=== PATIENT | male | born 1995 | race Caucasian/White ===

== ENCOUNTER 2024-10-21 23:03 | Emergency (ER) | payer BC, SELFPAY ==
[2024-10-21 23:04] VITALS: BP 117/72; PULSE 90; RESP 20; TEMP 36.6; O2SAT 95; BMI 34.1
--- NOTE | 2024-10-22 00:03 | [facility].EDGENADL ---
Discharge Plan Disposition Patient Disposition: Home, Self-Care Condition: Good Prescriptions Prescriptions: New ondansetron HCl 4 mg tablet 4 mg PO Q8H PRN (Reason: nausea and vomiting) 5 Days Qty: 30 0RF Referrals Follow up/Referrals: Provider,Referral, MD [Primary Care Provider] - See instructions Activity Restrictions/Add. Instructions Additional Instructions/Restrictions: Please follow-up with urology as discussed. Please return to the ER if you develop any new or worsening symptoms or your symptoms persist, especially monitor for signs of infection. Please take Zofran as needed for nausea. Clinical Impressions Clinical Impression: Calculus of ureterovesical junction (UVJ) Print Language Print Language: Bulgarian Discharge ED Provider: Carlos Tilley General Adult HPI General Chief complaint: PAIN Stated complaint: vomiting, abd pain, poss kidney stones Time Seen by Provider: 10/22/24 00:03 History of Present Illness HPI narrative: 20-year-old male with distant history of kidney stones presents for continued flank pain in the setting of kidney stone. He reports that he was seen last week at [facility] and diagnosed with a kidney stone that was approximately 3 mm. He was discharged on Flomax and has been taking it as well as pain meds but tonight his symptoms acutely worsened prompting presentation. No fever, chills, dysuria. Related Data Previous Rx's ?Medication ?Instructions ?Recorded ondansetron HCl 4 mg tablet 4 mg PO Q8H PRN nausea and 10/22/24 vomiting 5 days #30 tabs Allergies Allergy/AdvReac Type Severity Reaction Status Date / Time No Known Allergies Allergy Verified 10/22/24 00:11 [facility] Disclaimer: The information contained in this section may have been updated after the patient was seen, as this information can be updated by other users. Social History Smoking Status: Never smoker alcohol intake: never current occupational status: employed Travel in the last 8 weeks: None ROS Obtained: Yes All systems reviewed & no additional complaints except as documented Physical Exam General General appearance: alert Comment: Uncomfortable appearing Head Head exam: atraumatic and normocephalic Eye Eye exam: Present normal appearance, PERRL and EOMI ENT ENT exam: Present normal oropharynx and normal external ear exam Neck Neck exam: Present normal inspection and full ROM Chest Chest inspection: Present normal inspection and symmetric chest wall rise; Absent tenderness Respiratory Respiratory exam: Present normal lung sounds bilaterally; Absent respiratory distress Cardiovascular Cardiovascular exam: Present regular rate and normal rhythm Abdominal Exam Abdominal exam: Present soft; Absent distention, tenderness or guarding Extremities Exam Extremities exam: Present normal inspection; Absent edema or joint swelling Back Exam Back exam: Present normal inspection and CVA tenderness (L) Neurological Exam Neurological exam: Present alert and oriented X3; Absent motor sensory deficit Psychiatric Psychiatric exam: Present normal affect and normal mood Skin Skin exam: Present warm, dry and normal color Lymphatic Lymphatic Findings: no adenopathy Medical Decision Making Medical Records Medical records reviewed: Yes I reviewed the patient's medical records. Screening: Per USPSTF and CDC recommendations, given the prevalence of disease in our region, it is our hospital?s policy to screen for HIV and viral Hepatitis for all patients aged 18 and over and those with ongoing risk factors. Humza Inquiry Pt receiving controlled substance: No Humza was queried for this patient: No Vital Signs: 10/21/24 23:04 10/22/24 03:32 Temperature 97.8 F 98.1 F Temperature Source Oral Pulse Rate 67 Pulse Rate [Right Brachial] 90 Respiratory Rate 20 16 Blood Pressure 156/113 H Blood Pressure [Right Arm] 117/72 Blood Pressure Mean [Right Arm] 87 Blood Pressure Source [Right Arm] Automatic Cuff Blood Pressure Position [Right Arm] Supine 02 Sat by Pulse Oximetry 95 Oxygen Delivery Method Room Air Lab Data Lab results reviewed: Yes I reviewed the patient's lab results. Lab Results 10/22/24 00:10: Urine Color Yellow, Urine Appearance Slightly cloudy, Urine pH 7.5, Ur Specific [place] 1.020, Urine Protein 1+ A, Urine Glucose (UA) Negative, Urine Ketones 1+, Urine Blood 1+ A, Urine Nitrate Negative, Urine Bilirubin Negative, Urine Urobilinogen 0.2, Ur Leukocyte Esterase Trace, Urine RBC 5-10, Urine WBC Occasional, Ur Squamous Epith Cells Occasional, Amorphous Sediment 2+, Urine Bacteria 1+ 10/22/24 00:23: WBC 12.4 H, RBC 4.62, Hgb 14.8, Hct 42.1, MCV 91.1, MCH 32.0 H, MCHC 35.2, RDW 11.7, Plt Count 197, MPV 10.0, Neut % (Auto) 78.8, Lymph % (Auto) 9.9 L, [place] % (Auto) 10.0 H, Eos % (Auto) 0.2, Baso % (Auto) 0.5, Neut # (Auto) 9.8 H, Lymph # (Auto) 1.2, [place] # (Auto) 1.2 H, Eos # (Auto) 0.0, Baso # (Auto) 0.1, Sodium 133 L, Potassium 3.7, Chloride 102, Carbon Dioxide 24, Anion Gap 10.7, BUN 18, Creatinine 0.90, Estimated Creat Clear 226, Estimated GFR 100, Est GFR ( Amer) 122, Glucose 101 H, Calcium 9.5, Total Bilirubin 1.6 H, AST 35, ALT 36, Alkaline Phosphatase 63, Total Protein 7.1, Albumin 4.5, Globulin 2.6, Albumin/Globulin Ratio 1.7 10/22/24 01:52: Urine Color Yellow, Urine Appearance Clear, Urine pH 7.0, Ur Specific [place] <= 1.005, Urine Protein Negative, Urine Glucose (UA) Negative, Urine Ketones Negative, Urine Blood 1+ A, Urine Nitrate Negative, Urine Bilirubin Negative, Urine Urobilinogen 0.2, Ur Leukocyte Esterase Negative, Urine RBC 5-10, Urine WBC 3-5, Ur Squamous Epith Cells 3-5, Urine Bacteria Trace 10/22/24 00:23 10/22/24 00:23 Orders (Tests/Meds): ED MEDICATIONS Discontinued Medications Generic Name Dose Route Start Last Admin Trade Name Ohq PRN Reason Stop Dose Admin Acetaminophen 1,000 mg 10/22/24 00:06 10/22/24 00:20 Acetaminophen 500mg Tab PO 10/22/24 00:07 1,000 mg ONCE ONE Administration Iopamidol 75 ml 10/22/24 01:22 10/22/24 01:23 Iopamidol-370 (76%);100ml Bottle IV 10/22/24 01:23 75 ml ONCE ONE Administration Ketorolac Tromethamine 30 mg 10/22/24 00:06 10/22/24 00:22 Ketorolac 30mg/Ml Vial IV 10/22/24 00:07 30 mg ONCE ONE Administration Morphine Sulfate 4 mg 10/22/24 00:06 10/22/24 00:22 Morphine 4mg/Ml Syringe IV 10/22/24 00:07 4 mg ONCE ONE Administration Ondansetron HCl 4 mg 10/22/24 00:06 10/22/24 00:21 Ondansetron 4mg/2ml Vial IV 10/22/24 00:07 4 mg ONCE ONE Administration Oxycodone HCl 5 mg 10/22/24 03:30 10/22/24 03:38 Oxycodone 5mg Immediate Release Tablet PO 10/22/24 03:31 5 mg ONCE ONE Administration Sodium Chloride 10 ml 10/22/24 01:22 10/22/24 01:23 Sodium Chloride 0.9% 10ml Syr (Rad Only) IV 10/22/24 01:23 10 ml ONCE ONE Administration ORDERS Category Date Time Status CT abdomen pelvis w con Stat Cat Scan 10/22/24 00:08 Completed CBC w/Auto Diff [Complete Blood Count Auto Diff] Stat Lab 10/22/24 00:23 Completed CMP [Comprehensive Metabolic Panel] Stat Lab 10/22/24 00:23 Completed UA [Urinalysis and Microscopic] Stat Lab 10/22/24 00:10 Completed UA [Urinalysis and Microscopic] Stat Lab 10/22/24 01:52 Completed Medical Decision Narrative: 28-year-old male with distant history of kidney stones, diagnosed with a 3 mm kidney stone at [facility] last week presents for continued/worsened left flank pain.. History was obtained via interactive discussion with patient, family. On arrival, patient is [afebrile, hemodynamically stable, satting appropriately, alert, oriented x4, GCS 15], moving all extremities spontaneously. Full physical exam performed and significant for left CVA tenderness Differential includes but is not limited to kidney stone, pyelonephritis, UTI, ANGUS, perinephric abscess. Patient was given Tylenol Toradol morphine Zofran oxycodone for symptomatic management and correction of underlying abnormalities. Workup initiated including CBC CMP UA CT abdomen pelvis with IV contrast. On re-evaluation, patient [remains afebrile, HD stable.] He reports marked symptomatic improvement, feeling much better. Laboratory workup independently interpreted by me and significant for minimal leukocytosis, mildly elevated bilirubin, normal renal function urine with 5-10 RBCs, 3-5 WBCs, trace bacteria, 3-5 squamous cells.. Imaging independently interpreted by me and significant for 3 to 4 mm UVJ stone with some associated thickening of the bladder wall around the entrance of the ureter, appears inflammatory in nature according radiology but cannot rule out a neoplastic process.. See radiology read for full review of final results. Given patient history, exam and workup, patient's presentation most likely represents continued pain secondary to kidney stone. On reassessment patient's and nausea are nearly resolved. Given how distal the stone is, it is possible that it has passed between now and the CT scan. Extensive discussion was had with patient regarding his presentation. Given he has had no fevers chills or systemic symptoms, no dysuria, it seems unlikely his urinalysis is consistent with UTI. However, given the presence of whites and bacteria, I cannot categorically rule out a UTI with concomitant obstructing stone. Given this, I offered patient transfer to another facility for urology assessment but after interactive discussion patient declined. Regarding the bladder wall inflammation, I discussed with him that it was extremely important that he follow-up for reassessment. Recommended he return immediately if he develops any fever chills or systemic symptoms or if his pain returns or worsens as this could be a sign of infection. Procedures Risk/Benefits of Procedure(s) Were Explained: Yes Critical Care Critical Care Time Critical Care Time: No
--- NOTE | 2024-10-22 00:08 | CT_ITS ---
PROCEDURE INFORMATION: Exam: CT Abdomen And Pelvis With Contrast Exam date and time: 10/22/2024 12:35 AM Age: 28 years old Clinical indication: Abdominal pain; Acute; Additional info: Worsening abd pain, one week kidney stone TECHNIQUE: Imaging protocol: Computed tomography of the abdomen and pelvis with contrast. Radiation optimization: All CT scans at this facility use at least one of these dose optimization techniques: automated exposure control; mA and/or kV adjustment per patient size (includes targeted exams where dose is matched to clinical indication); or iterative reconstruction. Contrast material: ISOVUE; Contrast volume: 75 ml; Contrast route: IV; COMPARISON: No relevant prior studies available. FINDINGS: Lungs: No acute finding. Liver: Normal. No mass. Gallbladder and biliary ducts: Normal. No calcified stones. No ductal dilation. Pancreas: Normal. No ductal dilation. Spleen: Normal. No splenomegaly. Adrenal glands: Normal. No mass. Kidneys and ureters: There is a 4 mm calculus at the level of the left UVJ causing mild hydroureteronephrosis. There is minimal left perinephric stranding. The right kidney and ureter are normal. 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 Appendix: No evidence of appendicitis. Intraperitoneal space: Unremarkable. No free air. No significant fluid collection. Vasculature: Unremarkable. No abdominal aortic aneurysm. Lymph nodes: Unremarkable. No enlarged lymph nodes. Urinary bladder: The posterolateral left bladder wall centered at the level of the UVJ is diffusely thickened and somewhat edematous. Reproductive: Unremarkable as visualized. Bones/joints: Lumbar decompression at L5-S1 with posterior hardware and interbody fusion. No acute osseous abnormality. Soft tissues: Unremarkable. IMPRESSION: 1. 4 mm left UVJ calculus causing mild hydroureteronephrosis and minimal perinephric stranding. 2. Diffusely thickened and somewhat edematous left posterolateral bladder wall which may be inflammatory in nature and related to the obstructing stone however, a neoplastic process is not entirely excluded and follow-up is recommended. 3. Other nonemergent findings as noted.
[2024-10-22] MEDS: ACETAMINOPHEN 500MG TAB 1000 MG PO (00:20)
[2024-10-22] MEDS: ONDANSETRON 4MG/2ML VIAL 4 MG IV (00:21)
[2024-10-22] MEDS: KETOROLAC 30MG/ML VIAL 30 MG IV (00:22)
[2024-10-22] MEDS: MORPHINE 4MG/ML SYRINGE 4 MG IV (00:22)
[2024-10-22 00:26] LABS: Microscopic, Urine URINE MICROSCOPIC (MICROSCOPIC)
[2024-10-22 00:31] LABS: Bilirubin,Urine Negative (Negative); Blood, Urine 1+ (Negative); Color,Urine YELLOW (Yellow); Glucose,Urine (UA) Negative (Negative); Ketones,Urine 1+ (Negative); Leukocyte Esterase,Urine TRACE (Negative); Nitrate,Urine Negative (Negative); PH,Urine 7.5 (5.0-8.5); Protein,Urine 1+ (Negative); Urobilinogen,Urine 0.2 EU/dl (0.2)
[2024-10-22 00:39] LABS: Appearance,Urine Slightly Cloudy (Clear)
[2024-10-22 00:41] LABS: Amorphous Sediment,Urine 2+ /lpf; Bacteria,Urine 1+ /lpf; Squamous Epithelial Cell,Urine Occasional #/hpf (0-5); WBC,Urine Occasional #/hpf (0-3)
[2024-10-22 00:45] LABS: Alanine Aminotransferase 36 U/L (12-78); Albumin Level 4.5 g/dl (3.5-5.0); Albumin/Globulin Ratio 1.7 (1.1-1.8); Alkaline Phosphatase 63 U/L (38-126); Anion Gap 10.7 mEq/L (5-15); Aspartate Amino Transferase 35 U/L (17-59); Bilirubin,Total 1.6 mg/dl (0.2-1.3); Blood Urea Nitrogen 18 mg/dl (9-20); Calcium 9.5 mg/dl (8.4-10.2); Carbon Dioxide 24 mmol/L (22.0-30.0); Chloride 102 mmol/L (98-107); Creatinine Clearance Estimated 226 mL/min (50-200); Estimated Glomerular Filt Rate 100 ml/min (>60); GFR (African American) 122 ML/MIN (>60); Globulin 2.6 g/dL (1.3-3.2); Glucose 101 mg/dl (74-100); Potassium 3.7 mmoL/L (3.5-5.1); Sodium 133 mmol/L (136-145); Total Protein,Serum 7.1 g/dl (6.3-8.2)
[2024-10-22 00:51] LABS: White Blood Count 12.4 K/mm3 (4.8-10.8)
[2024-10-22 00:52] LABS: Basophils # 0.1 K/mm3 (0-0.2); Basophils % 0.5 % (0.1-2.0); Eosinophils % 0.2 % (0.1-12.0); Hematocrit 42.1 % (42.0-52.0); Hemoglobin 14.8 g/dL (14.1-18.0); Lymphocytes # 1.2 K/mm3 (0.7-4.5); Lymphocytes % 9.9 % (10-50); Mean Corpuscular HGB Conc 35.2 g/dL (31.8-35.4); Mean Corpuscular Volume 91.1 fl (80-94); Monocytes # 1.2 K/mm3 (0.1-1.0); Neutrophils # 9.8 K/mm3 (1.8-7.8); Neutrophils % 78.8 % (37.0-80.0); Platelet Count 197 K/mm3 (142-424); Red Blood Count 4.62 M/mm3 (4.60-6.20); Red Cell Distribution Width 11.7 % (11.5-17.5)
[2024-10-22] MEDS: SODIUM CHLORIDE 0.9% 10ML SYR (RAD ONLY) 10 ML IV (01:23)
[2024-10-22] MEDS: IOPAMIDOL-370 (76%);100ML BOTTLE 75 ML IV (01:23)
[2024-10-22 02:02] LABS: Appearance,Urine CLEAR (Clear); Bilirubin,Urine Negative (Negative); Blood, Urine 1+ (Negative); Color,Urine YELLOW (Yellow); Glucose,Urine (UA) Negative (Negative); Ketones,Urine Negative (Negative); Leukocyte Esterase,Urine Negative (Negative); Microscopic, Urine URINE MICROSCOPIC (MICROSCOPIC); Nitrate,Urine Negative (Negative); Protein,Urine Negative (Negative); Specific Gravity, Urine <= 1.005 (1.005-1.030); Urobilinogen,Urine 0.2 EU/dl (0.2)
[2024-10-22 02:12] LABS: Bacteria,Urine Trace /lpf
[2024-10-22 03:32] VITALS: BP 156/113; PULSE 67; RESP 16; TEMP 36.7; O2SAT 100
[2024-10-22] MEDS: OXYCODONE 5MG IMMEDIATE RELEASE TABLET 5 MG PO (03:38)
== END 2024-10-22 03:42 | disposition home or self-care (01) ==
PROVIDERS: Emergency Provider Emergency Medicine
DX: N20.1 Calculus of ureter (principal); R10.9 Unspecified abdominal pain; R11.10 Vomiting, unspecified
CPT/HCPCS: 74177; 80053; 81001; 85025; 96374; 96375; 99285; J1885; J2270; J2405; Q9967